=== PATIENT | female | born 1990 | race Caucasian/White ===

== ENCOUNTER 2019-04-13 06:40 | Inpatient (IN) | payer MEDICAID, OTHER ==
[2019-04-13] VITALS (11 sets, daily range): BP systolic 95–129; BP diastolic 53–74
[~2019-04-13] VITALS: Ht 160 cm; Wt 55.6 kg
[~2019-04-13 06:40] MED LIST: CLEO300C2 PO; KETO10TAB PO
[2019-04-13] MEDS ORDERED: NS 1,000 ML IV ONE (07:00)
[2019-04-13] MEDS ORDERED: DESV50TA3 (07:30)
[2019-04-13] MEDS ORDERED: DIAZ5TAB PO (07:30)
[2019-04-13] MEDS ORDERED: AMPH1TAB2 (07:30)
[2019-04-13 07:34] LABS: BASO % 0.7 % (0.0-1.0); EOS # 0.1 10^3/uL (0.0-0.50); EOS % 1.8 % (0.0-3.0); HEMOGLOBIN 11.8 g/dl (12.0-15.5); LYMPH # 2.1 10^3/uL (1.5-6.5); LYMPH % 33.5 % (24.0-44.0); MEAN CORPUSCULAR HEMOGLOBIN 29.1 pg (27.0-33.0); MEAN CORPUSCULAR HGB CONC 31.9 g/dl (32.0-36.5); MEAN CORPUSCULAR VOLUME 91.1 fl (80.0-96.0); MONO # 0.5 10^3/uL (0.0-0.8); NEUTROPHILS # 3.4 10^3/uL (1.8-7.7); NEUTROPHILS % 55.7 % (36.0-66.0); PLATELET COUNT, AUTOMATED 339 10^3/uL (150-450); RED BLOOD COUNT 4.06 10^6/uL (4.00-5.40); WHITE BLOOD COUNT 6.2 10^3/uL (4.0-10.0)
[2019-04-13] MEDS ORDERED: IBUP200T45 PO (07:56)
[2019-04-13] MEDS ORDERED: ADDE20TA PO ×2 (07:56)
[2019-04-13 08:15] LABS: ACETAMINOPHEN LEVEL < 2.0 UG/ML (10.0-30.0); ALBUMIN 3.4 GM/DL (3.2-5.2); ALT/SGPT 42 U/L (12-78); BILIRUBIN,DIRECT < 0.1 MG/DL (0.0-0.2); BILIRUBIN,TOTAL 0.3 MG/DL (0.2-1.0); BLOOD UREA NITROGEN 13 MG/DL (7-18); CALCIUM LEVEL 8.7 MG/DL (8.5-10.1); CARBON DIOXIDE LEVEL 29 MEQ/L (21-32); CHLORIDE LEVEL 104 MEQ/L (98-107); CPK CREATINE PHOSPHOKINASE 61 U/L (26-192); ETHYL ALCOHOL (ETHANOL) < 0.003 % (0.000-0.010); GLOMERULAR FILTRATION RATE > 60.0 (>60); GLUCOSE, FASTING 95 MG/DL (70-100); LIPASE 47 U/L (73-393); POTASSIUM SERUM 3.9 MEQ/L (3.5-5.1); SALICYLATE LEVEL 2.1 MG/DL (5.0-30.0); SODIUM LEVEL 138 MEQ/L (136-145); TOTAL PROTEIN 7.2 GM/DL (6.4-8.2)
[2019-04-13 08:18] LABS: HCG, SERUM QUALITATIVE NEGATIVE (NEGATIVE)
[2019-04-13 08:54] LABS: AMPHETAMINES LEVEL URINE POSITIVE (NEGATIVE); BARBITURATES URINE NEGATIVE (NEGATIVE); BENZODIAZEPINES URINE NEGATIVE (NEGATIVE); CANNABINOIDS URINE NEGATIVE (NEGATIVE); COCAINE METABOLITE URINE NEGATIVE (NEGATIVE); METHADONE URINE NEGATIVE (NEGATIVE); OPIATES URINE POSITIVE (NEGATIVE); PHENCYCLIDINE URINE NEGATIVE (NEGATIVE)
[2019-04-13] MEDS ORDERED: CHARCOAL ACTIVATED LIQUID 25 GM/120 ML BTL PO ONE ×2 (09:30→13:15)
--- NOTE | 2019-04-13 09:33 | REP ---
KUB: HISTORY: Assess for swallowed heroin. FINDINGS: KUB shows the intestinal gas pattern to be nonspecific. The organ silhouettes insofar as delineated are unremarkable. There is no evidence of free intraperitoneal air. IMPRESSION: Nonspecific. There is no evidence of an intraintestinal foreign body. Electronically Signed by Cristhian Gallo DO 04/13/2019 10:32 A
--- NOTE | 2019-04-13 09:43 | REP ---
HISTORY: Overdose. Assess for pulmonary edema. FINDINGS: The superior mediastinal structures are midline. The cardiac silhouette is unremarkable in size, shape and position. The diaphragmatic surfaces of the lungs are regular and the costophrenic angles are clear. The pulmonary donohue are clear. The imaged osseous structures are intact. IMPRESSION: There is no acute cardiopulmonary disease. Electronically Signed by Cristhian Gallo DO 04/13/2019 10:33 A
[2019-04-13] MEDS ORDERED: GOLYTELY SOLN 4000 ML BTL PO ONE ×2 (09:45→19:30)
[2019-04-13] MEDS: METOCLOPRAMIDE INJ 10MG/2ML VIAL (J2765) IV SCH ×3 (09:53→21:55)
--- NOTE | 2019-04-13 10:36 | HPEPDOC ---
General Date of Admission April 13, 2019 at 09:05 Chief Complaint The patient is a 28-year-old female admitted with a reason for visit of Heroin Overdose. Source: Patient Exam Limitations: Clinical conditions, Other (pt emotional instablity) History of Present Illness Pt is a 28 yo female with no PMH of daily IV heroin use presented to [facility] ER due to right upper quadrant and right lower quadrant abdominal pain that started at 5AM after swallowing heroine packs at 4AM. Pt said pain is more in RLQ. She reported that she uses Adderall in addition to daily IV heroin use injected in extremities and neck. She reported some lightheadedness and abd pain but denies any other symptoms including fever, chills, nausea, vomiting. Last BM was about 1-2 weeks ago. Left sided neck abscess was reported to start about 2 weeks ago that is reported to be improving; pt took doxycyline from friend for 10 days. Reported 2 left side neck abscess that used to be larger and more painful and erythematous. Pt stated that she has been able to move her neck better as the abscess improved. was Pt was sad and started tearing as she was unable to find her locke in her clothes, and asked to be left alone thus limited info was able to be obtained Home Medications Scheduled Dextroamphetamine/Amphetamine (Adderall 20 mg Tablet) 20 Mg Tablet, 30 MG PO QAM, (Reported) Dextroamphetamine/Amphetamine (Adderall 20 mg Tablet) 20 Mg Tablet, 20 MG PO DAILY, (Reported) TAKES AT NOON Scheduled PRN Diazepam (Diazepam) 5 Mg Tablet, 7.5 MG PO Q12H PRN for ANXIETY, (Reported) Ibuprofen (Ibu-200) 200 Mg Tablet, 200 MG PO Q6H PRN for PAIN, (Reported) Allergies Coded Allergies: Sulfa (Sulfonamide Antibiotics) (Verified Allergy, Intermediate, RASH, 04/13/19) amoxicillin (Verified Allergy, Intermediate, RASH, 04/13/19) Past Medical History Medical History IV heroin use Adderall use Pt denies any other medical history Surgical History Denies Social History * Smoker: Denies A-FIB/CHADSVASC A-FIB History Current/History of A-Fib/PAF?: No Review of Systems Constitutional: Reports: Other (limited ROS was able to be obtained d/t pt's emotional instability. Pos for ightheadedness); Denies: Chills, Fever Gastrointestinal: Reports: Abdominal Pain, Constipation; Denies: Nausea, Vomiting Physical Examination General Exam: Positive: Alert, Cooperative, Mild Distress Eye Exam: Positive: Conjunctiva & lids normal ENT Exam: Positive: Atraumatic, Mucous membr. moist/pink, Other ENT Neck Exam: Positive: Supple (2 small <1cm nodules/pustules noted on left sided lateral cervical region) Chest Exam: Positive: Clear to auscultation, Normal air movement; Negative: Rales, Rhonchi, Wheezing Heart Exam: Positive: Rate Normal, Regular Rhythm, Normal S1, Normal S2 Abdomen Exam: Positive: BS Hypoactive, Soft, Tenderness (in RLQ) Extremity Exam: Positive: Normal pulses, Other (Multiple needle tracks noted in b/l UE) Skin Exam: Positive: Nl turgor and temperature, Other skin issue (questionable abscess in left cervical region) Neuro Exam: Positive: Normal Speech Psych Exam: Positive: Mental status NL, Memory Intact, Oriented x 3; Negative: Mood NL Vital Signs Vital Signs Date Time Temp Pulse Resp B/P (MAP) Pulse Ox O2 Delivery O2 Flow Rate FiO2 04/13/19 10:20 108/64 (79) 04/13/19 10:15 90 18 96 Room Air 04/13/19 07:33 97.7 Laboratory Data Labs 24H Laboratory Tests 2 04/13/19 07:16: Immature Granulocyte % (Auto) 0.3, White Blood Count 6.2, Red Blood Count 4.06, Hemoglobin 11.8L, Hematocrit 37.0, Mean Corpuscular Volume 91.1, Mean Corpuscular Hemoglobin 29.1, Mean Corpuscular Hemoglobin Concent 31.9L, Red Cell Distribution Width 13.1, Platelet Count 339, Neutrophils (%) (Auto) 55.7, Lymphocytes (%) (Auto) 33.5, Monocytes (%) (Auto) 8.0H, Eosinophils (%) (Auto) 1.8, Basophils (%) (Auto) 0.7, Neutrophils # (Auto) 3.4, Lymphocytes # (Auto) 2.1, Monocytes # (Auto) 0.5, Eosinophils # (Auto) 0.1, Basophils # (Auto) 0.0, Nucleated Red Blood Cells % (auto) 0.0, Anion Gap 5L, Glomerular Filtration Rate > 60.0, Calcium Level 8.7, Aspartate Amino Transf (AST/SGOT) 31, Alanine Aminotransferase (ALT/SGPT) 42, Alkaline Phosphatase 121H, Total Bilirubin 0.3, Direct Bilirubin < 0.1, Total Creatine Kinase 61, Total Protein 7.2, Albumin 3.4, Albumin/Globulin Ratio 0.89L, Lipase 47L, Thyroid Stimulating Hormone (TSH) 0.850, Human Chorionic Gonadotropin, Qual NEGATIVE, Salicylates Level 2.1L, Acetaminophen Level < 2.0L, Ethyl Alcohol Level < 0.003 04/13/19 08:16: Urine Amphetamines Screen POSITIVEH, Urine Benzodiazepines Screen NEGATIVE, Urine Opiates Screen POSITIVEH, Urine Methadone Screen NEGATIVE, Urine Barbiturates Screen NEGATIVE, Urine Phencyclidine Screen NEGATIVE, Urine Cocaine Metabolite Screen NEGATIVE, Urine Cannabinoids Screen NEGATIVE CBC/BMP Laboratory Tests 04/13/19 07:16 Red Blood Count 4.06, Mean Corpuscular Volume 91.1, Mean Corpuscular Hemoglobin 29.1, Mean Corpuscular Hemoglobin Concent 31.9 L, Red Cell Distribution Width 13.1, Neutrophils (%) (Auto) 55.7, Lymphocytes (%) (Auto) 33.5, Monocytes (%) (Auto) 8.0 H, Eosinophils (%) (Auto) 1.8, Basophils (%) (Auto) 0.7, Neutrophils # (Auto) 3.4, Lymphocytes # (Auto) 2.1, Monocytes # (Auto) 0.5, Eosinophils # (Auto) 0.1, Basophils # (Auto) 0.0 Problems (1) Encounter for observation for suspected toxic effect from ingested substance Problem Text: Pt ingested 1 pk of heroin at 4AM and started having right sided abdominal pain 1 hr later. Pt vital signs stable and reported no symptoms other than lightheadedness and abdominal pain; no obvious symptoms of heroin overdose at this time as the heroin she swallowed was in packs noted to be for drug trafficking. Golytely, activated charcoal, and IV reglan ordered. Cont to monitor the pt closely and cont vital signs. Narcan if indicated (2) Subcutaneous nodule of neck Problem Text: Pt reported abscess in neck for about 2 weeks that she reported to be improving in size and pain. Took doxycycline that she got from friend for 10 days. Daily IV heroin use reported injection on neck as well. CT neck w/ contrast ordered showed no abnormality; consider repeat neck US. Pt was started on IV Vancomycin but d/c as no neg CT neck report without leukocytosis or fever. Blood cx X2 pending; echo if pos blood cx. (3) Heroin abuse Problem Text: Pt is daily heroin IV user with multiple needle trackings and questionable neck abscess. Blood cx and MRSA screen ordered. Pt's mood appeared unstable as she was tearing and asked if she could be left alone thus was unable to discuss it further. When pt is medically stable, we will consult psych team (4) Adderall use disorder, moderate Problem Text: Pt reported adderall use with no PMH reported that has medical indication for adderall use. Pt vitals currently stable. Unable to discuss with pt further regarding her adderall use. Will consult psych team when medically stable. Cont vital signs as scheduled (5) Anxiety Problem Text: Pt reported no medical diagnosis but home med include diazepam PRN. Utox neg for benzo. Vital signs stable, cont to monitor vital signs and consult psych team when medically stable Plan / VTE VTE Prophylaxis Ordered?: Yes (heparin [place]) DARIO DEVINE DO April 13, 2019 10:36
[2019-04-13] MEDS ORDERED: VANCOMYCIN HCL 1,000 MG, VIAL MATE ADAPTER 1 EACH in D5W 250 ML IV ONE (13:00)
--- NOTE | 2019-04-13 13:15 | IPNPDOC ---
Date Seen The patient was seen on 04/13/19. Progress Note ATTENDING NOTE: ADDENDUM TO PROGRESS NOTE BY RESIDENT PHYSICIAN, DR. DEVINE: I have indepedently interviewed and examined the patient at the bedside with my Resident physician, Dr. Devine. I agree with the treatment plan documented in Dr. Devine's Progress Note. All of the patient's concerns and questions have been satisfactorily answered. Pt has been encouraged to call me should questions arise. A-FIB/CHADSVASC A-FIB History Current/History of A-Fib/PAF?: No Current Oral Anticoagulant The: No VS, I&O, 24H, Fishbone Vital Signs/I&O Vital Signs Date Time Temp Pulse Resp B/P (MAP) Pulse Ox O2 Delivery O2 Flow Rate FiO2 04/13/19 11:50 82 18 97 Room Air 04/13/19 11:40 110/67 (81) 04/13/19 07:33 97.7 Laboratory Data 24H LABS Laboratory Tests 2 04/13/19 07:16: Immature Granulocyte % (Auto) 0.3, White Blood Count 6.2, Red Blood Count 4.06, Hemoglobin 11.8L, Hematocrit 37.0, Mean Corpuscular Volume 91.1, Mean Corpuscular Hemoglobin 29.1, Mean Corpuscular Hemoglobin Concent 31.9L, Red Cell Distribution Width 13.1, Platelet Count 339, Neutrophils (%) (Auto) 55.7, Lymphocytes (%) (Auto) 33.5, Monocytes (%) (Auto) 8.0H, Eosinophils (%) (Auto) 1.8, Basophils (%) (Auto) 0.7, Neutrophils # (Auto) 3.4, Lymphocytes # (Auto) 2.1, Monocytes # (Auto) 0.5, Eosinophils # (Auto) 0.1, Basophils # (Auto) 0.0, Nucleated Red Blood Cells % (auto) 0.0, Anion Gap 5L, Glomerular Filtration Rate > 60.0, Calcium Level 8.7, Aspartate Amino Transf (AST/SGOT) 31, Alanine Aminotransferase (ALT/SGPT) 42, Alkaline Phosphatase 121H, Total Bilirubin 0.3, Direct Bilirubin < 0.1, Total Creatine Kinase 61, Total Protein 7.2, Albumin 3.4, Albumin/Globulin Ratio 0.89L, Lipase 47L, Thyroid Stimulating Hormone (TSH) 0.850, Human Chorionic Gonadotropin, Qual NEGATIVE, Salicylates Level 2.1L, Acetaminophen Level < 2.0L, Ethyl Alcohol Level < 0.003 04/13/19 08:16: Urine Amphetamines Screen POSITIVEH, Urine Benzodiazepines Screen NEGATIVE, Urine Opiates Screen POSITIVEH, Urine Methadone Screen NEGATIVE, Urine Barbiturates Screen NEGATIVE, Urine Phencyclidine Screen NEGATIVE, Urine Cocaine Metabolite Screen NEGATIVE, Urine Cannabinoids Screen NEGATIVE CBC/BMP Laboratory Tests 04/13/19 07:16 Red Blood Count 4.06, Mean Corpuscular Volume 91.1, Mean Corpuscular Hemoglobin 29.1, Mean Corpuscular Hemoglobin Concent 31.9 L, Red Cell Distribution Width 13.1, Neutrophils (%) (Auto) 55.7, Lymphocytes (%) (Auto) 33.5, Monocytes (%) (Auto) 8.0 H, Eosinophils (%) (Auto) 1.8, Basophils (%) (Auto) 0.7, Neutrophils # (Auto) 3.4, Lymphocytes # (Auto) 2.1, Monocytes # (Auto) 0.5, Eosinophils # (Auto) 0.1, Basophils # (Auto) 0.0 LINETTE FAY MD April 13, 2019 13:15
[2019-04-13] MEDS ORDERED: ISOVUE-370 76% 100ML VIAL (Q9967) As Ordered ONE (13:19)
--- NOTE | 2019-04-13 13:43 | REP ---
HISTORY: Possible left neck abscess. COMPARISON: None. CONTRAST: 100 mL Isovue-370. SUPRAHYOID NECK: The parapharyngeal, retropharyngeal, pharyngomucosal, carotid, box toe buffer, and parotid spaces are within normal limits. There is spray artifact arising from dental amalgam obscuring multiple images of the suprahyoid neck. The prevertebral and paraspinal components of the perivertebral space are within normal limits. INFRAHYOID NECK: The aforementioned neck spaces along with the posterior cervical space are within normal limits. IMPRESSION: CT findings are within normal limits. Electronically Signed by Cristhian Gallo DO 04/13/2019 03:38 P
--- NOTE | 2019-04-13 14:17 | PHACANCOPD ---
PHARMACY VANCOMYCIN DOSING Pt Demographics Demographics Patient Age:28 , Weight:55.600 , Gender: female Adjusted Body Weight Date: 04/13/19, Adjusted Body Weight: Kg Events Past 24 Hours Events Past 24 Hours: NO: Dialysis, Diuretic Therapy, Change in CrCl, Fever, Elevation in WBC, Pending Diagnostics, Pending Procedures, Other Vancomycin Vancomycin indication: ? left neck abscess Vancomycin Target Ranges: 10-20 mcg/ml Vancomycin Load Y/N: Yes Load Dose Date Time Vancomycin Load Dose: 1000mg Date: 04/13 Time: ~14:00 Vancomycin Dose Date: 04/13/19. Current Vancomycin Dose: [1g IV q12h @20] Intermittent Dosing?: No Labs Labs Item Value Date Time White Blood Count 6.2 10^3/uL 04/13/19 0716 Creatinine 0.70 MG/DL 04/13/19 0716 Creatinine Clearance Date:04/13/19. Creatinine Clearance: [>100 ml/min]. Assessment and Plan Maintaining Current Dose?: Yes Reason for dose change: No Dose Change Pharmacist Note Pharmacist Note Date: 04/13/19. Pharmacist note: pt has been started on vancomycin for a questionable neck abscess secondary to IVDU. Pt noted that neck swelling improved with po doxycycline outpatient. I have started her on vancomycin 1g this afternoon, followed by 1g IV q12h to begin ~6 hours later. I will continue to monitor over the weekend and make adjustments as necessary. Eric Porras Pharm.D. April 13, 2019 14:17
[2019-04-13] MEDS: HEPARIN SOD (PORCINE) 5000 UNITS/ML VIAL SC SCH ×2 (14:25→21:55)
--- NOTE | 2019-04-13 17:54 | ECGEPIP ---
Stationary ECG Study [facility] - ED Test Date: 2019-04-13 Pat Name: LESLY RAND Department: Room: - Gender: F [employer]ave [employer]sembler: YANA : 1990 Requested By: NEHEMIAH Aguilar Order Number: [id number] Reading MD: Ariane Akers Measurements Intervals [place] Rate: 102 P: 62 MD: 157 QRS: 30 QRSD: 84 T: 29 QT: 335 QTc: 437 Interpretive Statements SINUS TACHYCARDIA ABNORMAL RHYTHM ECG NO PRIOR FOR COMPARISON Electronically Signed On 04-13-2019 17:53:44 EDT by Ariane Akers
[2019-04-13] MEDS ORDERED: MAGNESIUM CITRATE 300 ML BTL PO ONE (19:30)
[2019-04-13] MEDS ORDERED: CHARCOAL ACTIVATED LIQUID 25 GM/120 ML BTL PO SCH (20:00)
[2019-04-13] MEDS ORDERED: VANCOMYCIN HCL 750 MG, VIAL MATE ADAPTER 1 EACH in D5W 250 ML IV SCH (20:00)
[2019-04-13] MEDS ORDERED: VANCOMYCIN HCL 1,000 MG, VIAL MATE ADAPTER 1 EACH in D5W 250 ML IV SCH (20:00)
[2019-04-13] MEDS: LORazepam 2 MG TAB PO PRN (21:55)
[2019-04-14] VITALS (13 sets, daily range): BP systolic 96–137; BP diastolic 53–66
[2019-04-14] MEDS: CHARCOAL ACTIVATED LIQUID 25 GM/120 ML BTL PO SCH ×2 (03:40→08:27)
[2019-04-14] MEDS: METOCLOPRAMIDE INJ 10MG/2ML VIAL (J2765) IV SCH ×2 (03:40→08:32)
[2019-04-14] MEDS: LORazepam 2 MG TAB PO PRN (03:42)
[2019-04-14] MEDS ORDERED: LORazepam 2 MG/ML VIAL (J2060) IV PRN (04:00)
[2019-04-14] MEDS ORDERED: LORazepam 2 MG TAB XX PRN (04:00)
[2019-04-14] MEDS ORDERED: CHARCOAL ACTIVATED LIQUID 25 GM/120 ML BTL PO ONE (04:00)
[2019-04-14 05:01] LABS: HEMOGLOBIN 11.4 g/dl (12.0-15.5); MEAN CORPUSCULAR HEMOGLOBIN 29.1 pg (27.0-33.0); MEAN CORPUSCULAR HGB CONC 31.7 g/dl (32.0-36.5); MEAN CORPUSCULAR VOLUME 91.8 fl (80.0-96.0); PLATELET COUNT, AUTOMATED 344 10^3/uL (150-450); RED BLOOD COUNT 3.92 10^6/uL (4.00-5.40); WHITE BLOOD COUNT 7.7 10^3/uL (4.0-10.0)
[2019-04-14 05:24] LABS: BLOOD UREA NITROGEN 7 MG/DL (7-18); CALCIUM LEVEL 8.5 MG/DL (8.5-10.1); CARBON DIOXIDE LEVEL 28 MEQ/L (21-32); CHLORIDE LEVEL 106 MEQ/L (98-107); CREATININE FOR GFR 0.88 MG/DL (0.55-1.30); GLOMERULAR FILTRATION RATE > 60.0 (>60); GLUCOSE, FASTING 140 MG/DL (70-100); POTASSIUM SERUM 3.2 MEQ/L (3.5-5.1); SODIUM LEVEL 141 MEQ/L (136-145)
[2019-04-14] MEDS: HEPARIN SOD (PORCINE) 5000 UNITS/ML VIAL SC SCH (05:34)
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
[2019-04-14] MEDS ORDERED: POTASSIUM CHLORIDE 10 MEQ SR TABLET PO ONE (08:30)
[2019-04-14] MEDS ORDERED: LACTULOSE 20 GM/30 ML SYRUP UD PO ONE (08:30)
[2019-04-14] MEDS ORDERED: NS 1,000 ML IV SCH (08:30)
[2019-04-14] MEDS: THIAMINE 100 MG TAB PO SCH ×2 (08:32→20:22)
[2019-04-14] MEDS: MULTIVITAMINS/MINERALS THERAP 1 TAB PO SCH (08:32)
[2019-04-14] MEDS: FOLIC ACID 1 MG TAB PO SCH (08:32)
[2019-04-14] MEDS ORDERED: MAGNESIUM CITRATE 300 ML BTL PO ONE (09:00)
[2019-04-14] MEDS ORDERED: METHADONE 5 MG TAB (S0109) PO SCH ×2 (09:00→12:45)
[2019-04-14] MEDS ORDERED: MORPHINE 4 MG/ML 1ML VIAL/SYRINGE (J2270) IV PRN (09:00)
[2019-04-14] MEDS ORDERED: METHADONE 10 MG TAB (S0109) PO ONE (17:00)
[2019-04-14] MEDS: NS 1,000 ML IV SCH ×2 (17:04→17:58)
[2019-04-14] MEDS ORDERED: ALPRAZolam 0.5 MG TAB PO PRN (17:30)
[2019-04-14] MEDS ORDERED: ALPRAZolam 0.5 MG TAB PO ONE (17:45)
[2019-04-14] MEDS: METHADONE 10 MG TAB (S0109) PO SCH (20:22)
[2019-04-15 06:00] VITALS: BP 138/84
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
[2019-04-15] MEDS ORDERED: METH10TA2 PO (07:00)
[2019-04-15] MEDS ORDERED: CLIN150C14 PO (07:00)
[2019-04-15] MEDS: MULTIVITAMINS/MINERALS THERAP 1 TAB PO SCH (08:55)
[2019-04-15] MEDS: FOLIC ACID 1 MG TAB PO SCH (08:55)
[2019-04-15] MEDS: METHADONE 10 MG TAB (S0109) PO SCH (08:55)
[2019-04-15] MEDS: THIAMINE 100 MG TAB PO SCH (08:55)
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
[2019-04-15 14:00] VITALS: BP 93/59
[2019-04-15] MEDS ORDERED: MAGNESIUM OXIDE 400 MG TAB (MAG-OX) PO ONE (14:30)
[2019-04-15] MEDS ORDERED: POTASSIUM CHLORIDE 10 MEQ SR TABLET PO ONE (15:00)
[2019-04-15 15:01] LABS: MAGNESIUM LEVEL 2.3 MG/DL (1.8-2.4); POTASSIUM SERUM 3.6 MEQ/L (3.5-5.1)
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
== END 2019-04-15 15:41 | DRG 816 ==
LOC: M ED 06:40 → M ED INP 09:05 → M ICU 12:05 → M MSPAV 04-14 14:01
PROVIDERS: ADMIT General Practice; ATTEND General Practice
DX: T40.1X2A Poisoning by heroin, intentional self-harm, initial encounter (principal); L03.221 Cellulitis of neck; F11.23 Opioid dependence with withdrawal; F41.9 Anxiety disorder, unspecified; Z79.899 Other long term (current) drug therapy; Z88.2 Allergy status to sulfonamides; Z88.0 Allergy status to penicillin; F15.90 Other stimulant use, unspecified, uncomplicated; F11.90 Opioid use, unspecified, uncomplicated; F32.9 Major depressive disorder, single episode, unspecified

== ENCOUNTER 2019-04-15 13:49 | Inpatient (IN) | payer OTHER ==
[~2019-04-15] VITALS: Ht 160 cm; Wt 54.5 kg
[~2019-04-15 13:49] MED LIST changes: +ADDE20TA PO; +AMPH1TAB2; +CLIN150C14 PO; +DESV50TA3; +DIAZ5TAB PO; +IBUP200T45 PO; +METH10TA2 PO
[2019-04-15] MEDS ORDERED: MOM 30ML SUSPENSION UDC PO PRN (14:00)
[2019-04-15] MEDS ORDERED: IBUPROFEN 400 MG TAB PO PRN (14:00)
[2019-04-15] MEDS ORDERED: MAALOX 30 ML SUSP *UDC PO PRN (14:00)
[2019-04-15] MEDS ORDERED: ALPRAZolam 0.5 MG TAB PO PRN ×2 (14:00→17:15)
[2019-04-15] MEDS ORDERED: METHADONE 10 MG TAB (S0109) PO SCH (16:00)
[2019-04-15 16:35] VITALS: BP 103/65
[2019-04-15] MEDS ORDERED: CLINDAMYCIN 150 MG CAP PO SCH (17:00)
[2019-04-15] MEDS: THIAMINE 100 MG TAB PO SCH (17:06)
[2019-04-15] MEDS ORDERED: METHADONE 5 MG TAB (S0109) PO SCH (21:00)
[2019-04-15] MEDS: traZODone 50 MG TAB PO PRN (23:55)
[2019-04-16 06:39] VITALS: BP 92/55
[2019-04-16] MEDS: MULTIVITAMINS/MINERALS THERAP 1 TAB PO SCH (09:00)
[2019-04-16] MEDS: FOLIC ACID 1 MG TAB PO SCH (09:00)
[2019-04-16] MEDS ORDERED: METHADONE 10 MG TAB (S0109) PO ONE (09:00)
[2019-04-16] MEDS ORDERED: METHADONE 5 MG TAB (S0109) PO ONE (09:00)
[2019-04-16] MEDS: THIAMINE 100 MG TAB PO SCH ×2 (09:00→20:47)
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
[2019-04-16] MEDS: CLINDAMYCIN 150 MG CAP PO SCH ×3 (14:06→20:47)
[2019-04-16] MEDS: METHADONE 10 MG TAB (S0109) PO SCH ×2 (15:07→20:48)
[2019-04-16 18:00] VITALS: BP 101/56
--- NOTE | 2019-04-16 21:59 | HPE ---
DATE OF ADMISSION: 04/15/2019 Please refer to the psychiatric history and evaluation for further details on this admission. This examination and history is intended for medical issues which may need treatment, followup, or consult on this 28-year-old female who was transferred down from the medical floor after having been treated for a stated overdose of five bags of heroin. She received charcoal. She has had x-rays and has been cleared. ALLERGIES: SULFA ANTIBIOTICS and AMOXICILLIN. SOCIAL HISTORY: She is single. She does not drink alcohol. She occasionally smokes cigarettes. Recreational drug use: Heroin, amphetamines. PAST MEDICAL HISTORY: Substance abuse, anxiety, depression. PAST SURGICAL HISTORY: Umbilical hernia repair. FAMILY HISTORY: Mother is alive and well. Father is alive and well. HOME MEDICATIONS: - she has been on vancomycin for an abscess on her neck (cut off) she has been on clindamycin upon arrival down here - methadone 10 mg by mouth three times a day - at home Adderall 20 mg by mouth daily, notes say Adderall 30 mg by mouth daily, will need to check with pharmacy REVIEW OF SYSTEMS: No complaint of headaches. No blurred or double vision. No fever or chills. No tinnitus. No hoarseness. No difficulty swallowing. Slight lightheadedness. No vertigo. BREASTS: No masses. CARDIOVASCULAR: No complaints of chest pain, shortness of breath, palpitations, or edema. RESPIRATORY: No cough. No sputum production. No hemoptysis. No orthopnea. No wheeze. GASTROINTESTINAL (GI): No nausea, vomiting, or diarrhea. No hematochezia. No melena. No complaints of abdominal pain. GENITOURINARY (): No hematuria, dysuria, or frequency. MUSCULOSKELETAL: No joint redness or swelling. ENDOCRINE: No polyuria, polydipsia, or polyphagia. HEMATOLOGICAL: No history of anemia. NEUROLOGICAL: No history of seizures. PSYCHOLOGICAL: Complaining of severe anxiety. PHYSICAL EXAMINATION: 28-year-old cooperative female in no acute distress. Height 63 inches, weight 54 kg, body mass index (BMI) 21.3. Blood pressure 100/60, pulse 76, respirations 18, temperature 99. Patient is alert and oriented times three. Pupils equal and reactive to light. Extraocular movements are intact. Cornea and sclerae clear. Conjunctivae is normal. No facial asymmetry. Pharynx, tongue, gums pink and moist. Tongue is midline. Neck is supple. Left side of neck has three slightly firm nodules or slightly hardened lymph glands or cysts. Right side of neck healing slightly reddened from IV access. No thyromegaly. No goiter. Carotids 2+ without bruit. Chest clear to auscultation without wheeze or retraction. Heart is regular. Abdomen is benign. Bowel sounds are positive. Genitourinary/Rectal: Not done. Extremities show no cyanosis, clubbing, or edema. Peripheral pulses equal and palpable bilaterally. IMPRESSION/PLAN: Psychiatric plan per psychiatry. Treat and monitor for withdrawal. Polysubstance abuse. Depression/anxiety. EKG on file shows sinus tachycardia 102. Question hardened lymph nodes, cysts, left side of neck. CT scan was unremarkable. Will get an ultrasound. Healing abscess right side of neck. Continue clindamycin.
[2019-04-16] MEDS: traZODone 50 MG TAB PO PRN (22:13)
[2019-04-17 06:33] VITALS: BP_SYST 83; BP_SYST 92; BP_DIAS 51; BP_DIAS 52
[2019-04-17] MEDS: MULTIVITAMINS/MINERALS THERAP 1 TAB PO SCH (08:28)
[2019-04-17] MEDS: FOLIC ACID 1 MG TAB PO SCH (08:28)
[2019-04-17] MEDS: THIAMINE 100 MG TAB PO SCH (08:28)
[2019-04-17] MEDS: CLINDAMYCIN 150 MG CAP PO SCH ×2 (08:28→12:18)
[2019-04-17] MEDS ORDERED: METHADONE 5 MG TAB (S0109) PO SCH ×2 (09:00)
[2019-04-17] MEDS ORDERED: CLIN150C14 PO (11:00)
[2019-04-17 13:25] LABS: HEPATITIS A ANTIBODY IGM NEGATIVE (NEGATIVE); HEPATITIS B CORE ANTIBODY IGM NEGATIVE (NEGATIVE); HEPATITIS B SURFACE ANTIGEN NEGATIVE (NEGATIVE)
[2019-04-17 13:35] LABS: HEPATITIS C VIRUS ABY INDEX > 11.0 INDEX (<0.8)
--- NOTE | 2019-04-17 15:13 | MHDSPDOC ---
[facility] Discharge Summary Discharge Summary DATE OF ADMISSION: April 15, 2019 at 15:45 DATE OF DISCHARGE: April 17, 2019 at 12:50 DISCHARGE DIAGNOSES: 1. Adjustment disorder with depressed mood. 2.. Opiate dependence. REASON FOR ADMISSION: On medical floor. Patient made suicidal statements following arrest on numerous charges. Patient had stated she also swallowed bag of heroin CONSULTANTS INVOLVED: Seen on medical floor and seen by Dr. Zaidi TREATMENT AND PROGRESS ON THE UNIT :. Patient was observed and methadone dosage prescribed by Dr. Zaidi was decreased. HOSPITAL COURSE: Patient slept in bed mostly and evaluation of neck vessels was completed DISCHARGE ASSESSMENT:. Opiate dependence and criminal behavior MENTAL STATUS EXAMINATION ON DISCHARGE: Patient is a 28-year old female, who is being arrested for numerous criminal charges including opiate dependence. Speech is, intact. Language skills are, intact. Thought processes including:. No abnormal thought process. Thought content: Intact. Abstract reasoning, and computation:. Able to abstract. Description of associations:. No loose associations. Description of abnormal or psychotic thoughts:. No psychotic thought. Judgment: Poor. Insight:, Poor. Orientation to intact in 3 spheres. Recent and remote memory: Intact. Attention span and concentration:. Poor. Language: As above. Fund of knowledge:, Intact. Mood:, Sad. Affect:, Congruent. MEDICATIONS ON DISCHARGE: -. No medications prescribed, except clindamycin for infection PLAN/FOLLOWUP ARRANGEMENTS: Patient is presently going to be arrested and follow-up care will be arranged. The amount of time spent in the coordination of care for this patient was approximately 85 minutes. Vital Signs/I&Os Vital Signs Date Time Temp Pulse Resp B/P (MAP) Pulse Ox O2 Delivery O2 Flow Rate FiO2 04/17/19 06:33 97.6 47 14 92/52 (65) 04/16/19 18:00 98 Laboratory Data Labs 24H Laboratory Tests 2 04/17/19 11:39: Hepatitis A IgM Antibody NEGATIVE, Hepatitis B Surface Antigen NEGATIVE, Hepatitis B Core IgM Antibody NEGATIVE, Hepatitis C Antibody Index > 11.0H 04/17/19 11:40: Medications Scheduled Clindamycin Hcl (Clindamycin HCl) 150 Mg Capsule, 150 MG PO QID for iNFECTION for 7 Days, #28 Allergies Coded Allergies: Sulfa (Sulfonamide Antibiotics) (Verified Allergy, Intermediate, RASH, 04/13/19) amoxicillin (Verified Allergy, Intermediate, RASH, 04/13/19) SEDRICK DONNELLY MD April 17, 2019 15:13
--- NOTE | 2019-04-17 16:38 | REP ---
Clinical: Palpable mass. Technique: Real time hall scale and color evaluation using linear high frequency transducer with standoff pad. Findings: Directed ultrasound examination of the side of the neck at the site of palpable masses demonstrates complex hypoechoic nodules measuring 12.6 x 6.2 x 10.2 mm and 15.7 x 7.7 x 10.4 mm as well as normal lymph node measuring 8.5 x 4.1 x 6.3 mm. Impression: Palpable mass corresponds to nonspecific hypoechoic nodules possible granulomas. Electronically Signed by Roel Manzanares MD 04/17/2019 04:29 P
[2019-04-18] MEDS ORDERED: METHADONE 5 MG TAB (S0109) PO ONE (09:00)
== END 2019-04-17 12:50 | DRG 754 ==
LOC: M PSY 15:45
PROVIDERS: ADMIT Psychiatry & Neurology Psychiatry; ATTEND Psychiatry & Neurology Child & Adolescent Psychiatry
DX: F43.21 Adjustment disorder with depressed mood (principal); R45.851 Suicidal ideations; F11.90 Opioid use, unspecified, uncomplicated; Z88.2 Allergy status to sulfonamides; Z88.0 Allergy status to penicillin

== ENCOUNTER → 2019-08-16 | Outpatient (CLI) | payer SELFPAY ==
[2019-08-16 13:32] LABS: BASO % 0.3 % (0.0-1.0); EOS % 0.3 % (0.0-3.0); HEMATOCRIT 40.7 % (36.0-47.0); HEMOGLOBIN 13.6 g/dl (12.0-15.5); LYMPH # 2.9 10^3/uL (1.5-5.0); LYMPH % 40.5 % (24.0-44.0); MEAN CORPUSCULAR HEMOGLOBIN 31.1 pg (27.0-33.0); MEAN CORPUSCULAR HGB CONC 33.4 g/dl (32.0-36.5); MEAN CORPUSCULAR VOLUME 92.9 fl (80.0-96.0); MONO # 0.4 10^3/uL (0.0-0.8); MONO % 5.8 % (0.0-5.0); NEUTROPHILS # 3.9 10^3/uL (1.5-8.5); PLATELET COUNT, AUTOMATED 285 10^3/uL (150-450); RED BLOOD COUNT 4.38 10^6/uL (4.00-5.40); WHITE BLOOD COUNT 7.3 10^3/uL (4.0-10.0)
[2019-08-16 13:57] LABS: ALBUMIN 4.3 GM/DL (3.2-5.2); ALT/SGPT 65 U/L (12-78); BILIRUBIN,TOTAL 0.5 MG/DL (0.2-1.0); BLOOD UREA NITROGEN 14 MG/DL (7-18); CALCIUM LEVEL 9.9 MG/DL (8.5-10.1); CARBON DIOXIDE LEVEL 27 MEQ/L (21-32); CHLORIDE LEVEL 104 MEQ/L (98-107); CREATININE FOR GFR 0.83 MG/DL (0.55-1.30); GLOMERULAR FILTRATION RATE > 60.0 (>60); GLUCOSE, FASTING 116 MG/DL (70-100); SODIUM LEVEL 141 MEQ/L (136-145); TOTAL PROTEIN 7.9 GM/DL (6.4-8.2)
[2019-08-16 14:10] LABS: HEPATITIS B SURFACE ANTIGEN NEGATIVE (NEGATIVE)
[2019-08-16 14:38] LABS: HEPATITIS B CORE ANTIBODY IGM NEGATIVE (NEGATIVE)
[2019-08-16 14:40] LABS: HEPATITIS A ANTIBODY IGM NEGATIVE (NEGATIVE)
[2019-08-16 15:54] LABS: HEPATITIS C VIRUS ABY INDEX > 11.0 INDEX (<0.8)
== END ==
LOC: M LAB 12:51
PROVIDERS: ATTEND Nurse Practitioner Family
DX: F11.20 Opioid dependence, uncomplicated (principal)

== ENCOUNTER → 2020-09-21 | Outpatient (CLI) | payer OTHER ==
[~2020-09-21] MED LIST changes: +LIDO2SOL17 PO; +METH10CO PO; +PATIENT COMMENT
[2020-09-21 13:26] LABS: HEMATOCRIT 42.1 % (36.0-47.0); HEMOGLOBIN 13.6 g/dl (12.0-15.5); MEAN CORPUSCULAR HEMOGLOBIN 28.9 pg (27.0-33.0); MEAN CORPUSCULAR HGB CONC 32.3 g/dl (32.0-36.5); MEAN CORPUSCULAR VOLUME 89.4 fl (80.0-96.0); PLATELET COUNT, AUTOMATED 214 10^3/uL (150-450); RED BLOOD COUNT 4.71 10^6/uL (4.00-5.40); WHITE BLOOD COUNT 9.6 10^3/uL (4.0-10.0)
[2020-09-21 13:59] LABS: ALBUMIN 3.5 GM/DL (3.2-5.2); ALT/SGPT 15 U/L (12-78); BILIRUBIN,TOTAL 0.2 MG/DL (0.2-1.0); BLOOD UREA NITROGEN 9 MG/DL (7-18); CALCIUM LEVEL 9.2 MG/DL (8.5-10.1); CARBON DIOXIDE LEVEL 26 MEQ/L (21-32); CHLORIDE LEVEL 106 MEQ/L (98-107); CREATININE FOR GFR 0.82 MG/DL (0.55-1.30); GLOMERULAR FILTRATION RATE > 60.0 (>60); GLUCOSE, FASTING 82 MG/DL (70-100); SODIUM LEVEL 138 MEQ/L (136-145); TOTAL PROTEIN 7.2 GM/DL (6.4-8.2)
[2020-09-21 14:27] LABS: HEPATITIS B SURFACE ANTIGEN NEGATIVE (NEGATIVE)
[2020-09-21 14:55] LABS: HIV 1&2 SCREEN CENTAUR NEGATIVE (NEGATIVE)
[2020-09-21 15:03] LABS: HEPATITIS C VIRUS ABY INDEX > 11.0 INDEX (<0.8)
[2020-09-21 19:43] LABS: HCG, SERUM QUALITATIVE NEGATIVE (NEGATIVE)
== END ==
LOC: M LAB 12:06
PROVIDERS: ATTEND Family Medicine
DX: F11.21 Opioid dependence, in remission (principal)

== ENCOUNTER → 2020-09-22 | Outpatient (CLI) | payer OTHER ==
--- NOTE | 2020-09-24 22:50 | ECGEPIP ---
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 Electronically Signed on 09-24-2020 22:50:24 EDT by Shay Peters
== END ==
LOC: M EKG 14:01
PROVIDERS: ATTEND Family Medicine
DX: F11.20 Opioid dependence, uncomplicated (principal); R94.31 Abnormal electrocardiogram [ECG] [EKG]

== ENCOUNTER 2020-09-25 12:37 | Emergency (ER) | payer OTHER ==
[~2020-09-25] VITALS: Ht 160 cm; Wt 71.5 kg
[~2020-09-25 12:37] MED LIST changes: -LIDO2SOL17 PO; -METH10CO PO; -PATIENT COMMENT
[2020-09-25 12:38] VITALS: BP 107/67
[2020-09-25] MEDS ORDERED: LIDO2SOL17 PO (13:55)
== END 2020-09-25 14:13 | disposition home or self-care (01) ==
LOC: M ED 12:37
DX: J02.8 Acute pharyngitis due to other specified organisms (principal); B34.9 Viral infection, unspecified; F41.9 Anxiety disorder, unspecified; F32.9 Major depressive disorder, single episode, unspecified; F19.10 Other psychoactive substance abuse, uncomplicated; Z88.2 Allergy status to sulfonamides; Z88.1 Allergy status to other antibiotic agents
CPT/HCPCS: 87880; 99284; U0003

== ENCOUNTER 2020-09-30 17:09 | Observation (INO) | payer OTHER ==
[~2020-09-30] VITALS: Ht 160 cm; Wt 69.5 kg
[~2020-09-30 17:09] MED LIST changes: +LIDO2SOL17 PO
[2020-09-30] MEDS ORDERED: METH10TA2 PO (17:16)
[2020-09-30 17:54] LABS: BASO % 0.5 % (0.0-1.0); EOS % 0.3 % (0.0-3.0); HEMATOCRIT 37.4 % (36.0-47.0); HEMOGLOBIN 12.4 g/dl (12.0-15.5); LYMPH % 26.7 % (24.0-44.0); MEAN CORPUSCULAR HEMOGLOBIN 28.5 pg (27.0-33.0); MEAN CORPUSCULAR HGB CONC 33.2 g/dl (32.0-36.5); MONO # 0.7 10^3/uL (0.0-0.8); MONO % 9.1 % (0.0-5.0); NEUTROPHILS # 4.6 10^3/uL (1.5-8.5); PLATELET COUNT, AUTOMATED 236 10^3/uL (150-450); RED BLOOD COUNT 4.35 10^6/uL (4.00-5.40); WHITE BLOOD COUNT 7.4 10^3/uL (4.0-10.0)
[2020-09-30] MEDS: NS 1,000 ML IV SCH (18:12)
[2020-09-30 18:15] LABS: HCG, SERUM QUALITATIVE NEGATIVE (NEGATIVE)
[2020-09-30 18:24] LABS: ACETAMINOPHEN LEVEL < 2.0 UG/ML (10.0-30.0); ALBUMIN 3.8 GM/DL (3.2-5.2); ALT/SGPT 16 U/L (12-78); BILIRUBIN,DIRECT 0.1 MG/DL (0.0-0.2); BILIRUBIN,TOTAL 0.5 MG/DL (0.2-1.0); BLOOD UREA NITROGEN 13 MG/DL (7-18); CALCIUM LEVEL 9.3 MG/DL (8.5-10.1); CARBON DIOXIDE LEVEL 23 MEQ/L (21-32); CHLORIDE LEVEL 107 MEQ/L (98-107); CPK CREATINE PHOSPHOKINASE 187 U/L (26-192); ETHYL ALCOHOL (ETHANOL) 0.003 % (0.000-0.010); GLOMERULAR FILTRATION RATE > 60.0 (>60); GLUCOSE, FASTING 112 MG/DL (70-100); POTASSIUM SERUM 3.3 MEQ/L (3.5-5.1); SALICYLATE LEVEL < 1.7 MG/DL (5.0-30.0); SODIUM LEVEL 139 MEQ/L (136-145)
[2020-09-30] MEDS ORDERED: POTASSIUM CHLORIDE 10 MEQ SR TABLET PO ONE (18:30)
--- NOTE | 2020-09-30 18:51 | REP ---
INDICATION: swallowed a bag of heroin. COMPARISON: 04/13/2019 FINDINGS: KUB shows the intestinal gas pattern to be nonspecific. The organ silhouettes insofar as delineated are unremarkable. There is no evidence of free intraperitoneal air. There is no evidence of a radiopaque foreign body. IMPRESSION: Nonspecific. <Electronically signed by Cristhian Gallo > 09/30/20 [id number]
[2020-09-30 20:17] LABS: AMPHETAMINES LEVEL URINE NEGATIVE (NEGATIVE); BARBITURATES URINE NEGATIVE (NEGATIVE); BENZODIAZEPINES URINE POSITIVE (NEGATIVE); CANNABINOIDS URINE NEGATIVE (NEGATIVE); COCAINE METABOLITE URINE NEGATIVE (NEGATIVE); METHADONE URINE POSITIVE (NEGATIVE); OPIATES URINE POSITIVE (NEGATIVE); PHENCYCLIDINE URINE NEGATIVE (NEGATIVE)
[2020-09-30] MEDS ORDERED: CHARCOAL ACTIVATED LIQUID 25 GM/120 ML BTL PO ONE (20:45)
--- NOTE | 2020-09-30 21:03 | ECGEPIP ---
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
[2020-09-30] MEDS ORDERED: METH10CO PO (21:11)
[2020-09-30] MEDS ORDERED: PATIENT COMMENT (21:11)
[2020-09-30] MEDS ORDERED: ACETAMINOPHEN TAB 650MG DOSE (2X325MG) PO PRN (22:15)
[2020-09-30] MEDS ORDERED: MOM 30ML SUSPENSION UDC PO PRN (22:15)
--- NOTE | 2020-09-30 22:15 | HPEPDOC ---
[facility] Medical History & Physical Date of Admission Sep 30, 2020 Date of Service: Sep 30, 2020 History and Physical CHIEF COMPLAINT: Ingestion of bag of heroin HISTORY OF PRESENT ILLNESS: 30-year-old female with past medical history of opiate abuse brought in his custody. Patient tells me that she was stopped by police and got nervous and had a bag of hair when with her which she ingested. Says that she's been clean for about 1 year and goes to methadone program taking 110 mg of methadone daily last was yesterday. Tells me that about 4 weeks ago she relapsed and has been using heroin occasionally last use was this morning. Denies any palpitations or abdominal pain or diarrhea. Doesn't feel like she is withdrawing currently. In the ED poison control was contacted who recommended activated charcoal and admission for observation until patient has a bowel movement. PAST MEDICAL HISTORY: Opiate abuse History of hepatitis C treated 2018 PAST SURGICAL HISTORY: Umbilical hernia repair 2013 SOCIAL HISTORY: Denies alcohol use Denies tobacco use Denies illicit drug use FAMILY HISTORY: Patient does not know her parents or any other family and so does not know any family history ALLERGIES: Please see below. REVIEW OF SYSTEMS: Constitutional: No sweating or weight loss Eyes: No eye pain or acute blurred vision HENT: No complaints of headache or sore throat Cadiovascular: No Chest pain or palpitations Pulm: No SOB or cough Gastrointestinal: No N/V, no abdominal pain. Genitourinary: No dysuria or hematuria Musculoskeletal: No back pain or joint pain Skin: No rash or jaundice Neurological: No weakness. HOME MEDICATIONS: Please see below. PHYSICAL EXAMINATION: Constitutional: Awake and alert, in no apparent distress ENT: Sclera are clear. Mucosa is moist. Respiratory: Lungs CTA bilaterally. No respiratory distress. No use of accessory muscles. Cardiovascular: RRR S1 and S2 are normal, no murmur Gastrointestinal: Abdomen is soft, non distended, non tender, BS present. Musculoskeletal: No edema. No joint deformities. RUE 5/5, LUE 5/5, BLE 5/5 Neurologic: No focal neurological deficit. Mental Status: A&O x3, normal affect Skin: Warm, dry LABORATORY DATA: See below. IMAGING: Abdominal x-ray reviewed shows no evidence of radioopaque foreign body MICROBIOLOGY: Please see below. ASSESSMENT/PLAN 30-year-old female history of opiate abuse in a methadone program but relapsed 4 weeks ago brought in in police custody after swallowing a bag of heroin during arrest. Activated charcoal in ED per poison control recommendations. Patient will be admitted for observation. # Ingestion of bag of heroin: S/P activated charcoal. Observe until patient has bowel movement and charcoal is seen per poison control recommendations. # Opiate abuse: sw. Monitor for withdrawals. # Hypokalemia: Replaced. Monitor. # DVT prophylaxis: Lovenox A [facility] Hospitalist Vital Signs Vital Signs Date Time Temp Pulse Resp B/P (MAP) Pulse Ox O2 Delivery O2 Flow Rate FiO2 09/30/20 20:45 104 16 118/66 (83) 96 Room Air 09/30/20 18:32 98.0 Laboratory Data Labs 24H Laboratory Tests 2 09/30/20 17:34: Immature Granulocyte % (Auto) 0.4, Neutrophils (%) (Auto) 63.0, Lymphocytes (%) (Auto) 26.7, Monocytes (%) (Auto) 9.1H, Eosinophils (%) (Auto) 0.3, Basophils (%) (Auto) 0.5, Neutrophils # (Auto) 4.6, Lymphocytes # (Auto) 2.0, Monocytes # (Auto) 0.7, Eosinophils # (Auto) 0.0, Basophils # (Auto) 0.0, Nucleated Red Blood Cells % (auto) 0.0, Anion Gap 9, Glomerular Filtration Rate > 60.0, C alcium Level 9.3, Total Bilirubin 0.5, Direct Bilirubin 0.1, Aspartate Amino Transf (AST/SGOT) 23, Alanine Aminotransferase (ALT/SGPT) 16, Alkaline Phosphatase 153H, Total Creatine Kinase 187, Total Protein 8.0, Albumin 3.8, Albumin/Globulin Ratio 0.9L, Thyroid Stimulating Hormone (TSH) 0.700, Human Chorionic Gonadotropin, Qual NEGATIVE, Salicylates Level < 1.7L, Acetaminophen Level < 2.0L, Ethyl Alcohol Level 0.003 09/30/20 19:48: Urine Opiates Screen POSITIVEH, Urine Methadone Screen POSITIVEH, Urine Barbiturates Screen NEGATIVE, Urine Phencyclidine Screen NEGATIVE, Urine Amphetamines Screen NEGATIVE, Urine Benzodiazepines Screen POSITIVEH, Urine Cocaine Metabolite Screen NEGATIVE, Urine Cannabinoids Screen NEGATIVE CBC/BMP Laboratory Tests 09/30/20 17:34 Home Medications Scheduled Methadone HCl (Methadone HCl) 10 Mg/1 Ml Oral.conc, 110 MG PO DAILY Miscellaneous Medications [Patient Comment] NEED TO CONTACT [facility] TO CONFIRM DOSE Allergies Coded Allergies: Sulfa (Sulfonamide Antibiotics) (Verified Allergy, Intermediate, RASH, ) amoxicillin (Verified Allergy, Intermediate, RASH, 04/13/19) A-FIB/CHADSVASC A-FIB History Current/History of A-Fib/PAF?: No TRUDY SILVERIO MD Sep 30, 2020 22:15
[2020-10-01] VITALS (7 sets, daily range): BP systolic 96–136; BP diastolic 55–81; PULSE 50; O2SAT 96–98
[2020-10-01] MEDS: NS 1,000 ML IV SCH ×3 (03:13→17:28)
[2020-10-01] MEDS: CHARCOAL ACTIVATED LIQUID 25 GM/120 ML BTL PO SCH ×4 (03:28→15:51)
[2020-10-01 05:22] LABS: HEMATOCRIT 32.9 % (36.0-47.0); MEAN CORPUSCULAR HEMOGLOBIN 28.4 pg (27.0-33.0); MEAN CORPUSCULAR HGB CONC 31.6 g/dl (32.0-36.5); MEAN CORPUSCULAR VOLUME 89.9 fl (80.0-96.0); PLATELET COUNT, AUTOMATED 191 10^3/uL (150-450); RED BLOOD COUNT 3.66 10^6/uL (4.00-5.40); WHITE BLOOD COUNT 6.5 10^3/uL (4.0-10.0)
[2020-10-01 05:26] LABS: HEMOGLOBIN 10.4 g/dl (12.0-15.5)
[2020-10-01 05:52] LABS: BLOOD UREA NITROGEN 8 MG/DL (7-18); CALCIUM LEVEL 8.2 MG/DL (8.5-10.1); CARBON DIOXIDE LEVEL 25 MEQ/L (21-32); CHLORIDE LEVEL 111 MEQ/L (98-107); CREATININE FOR GFR 0.71 MG/DL (0.55-1.30); GLOMERULAR FILTRATION RATE > 60.0 (>60); GLUCOSE, FASTING 90 MG/DL (70-100); POTASSIUM SERUM 3.3 MEQ/L (3.5-5.1); SODIUM LEVEL 142 MEQ/L (136-145)
[2020-10-01] MEDS ORDERED: POTASSIUM CHLORIDE 10 MEQ SR TABLET PO ONE (07:30)
[2020-10-01 08:12] LABS: MAGNESIUM LEVEL 2.1 MG/DL (1.8-2.4)
[2020-10-01] MEDS ORDERED: NALOXONE INJ 0.4MG/1ML VIAL (J2310 PER 1MG) IV PRN (08:15)
[2020-10-01] MEDS: ENOXAPARIN 40MG/0.4ML SYRINGE (J1650 PER 10MG) SC SCH (08:24)
--- NOTE | 2020-10-01 15:09 | IPNPDOC ---
Subjective Date Seen The patient was seen on 10/01/20. Subjective Chief Complaint/HPI Ms. Montesinos is a 30 year old female with history of opioid abuse who was brought in custody for heroin possession and ingestion of a bag of heroin. This morning, she was seen sitting in bed with a cup of activated charcoal. Denies fever, dyspnea, or chest pain. She has some nausea and abdominal discomfort. No BM at this time. Objective Physical Examination General Exam: Positive: Alert, Cooperative Eye Exam: Positive: EOMI; Negative: Sclera icteric ENT Exam: Positive: Atraumatic Neck Exam: Positive: Supple Chest Exam: Positive: Clear to auscultation; Negative: Rales, Rhonchi, Wheezing Heart Exam: Positive: Rate Normal, Regular Rhythm Abdomen Exam: Positive: Normal bowel sounds, Soft Extremity Exam: Negative: Edema Neuro Exam: Positive: Cranial Nerves 3-12 NL Psych Exam: Positive: Anxiety Assessment /Plan Assessment Ms. Montesinos is a 30 year old female with history of opioid abuse who was brought in custody for heroin possession and ingestion of a bag of heroin. ED had contacted poison control which recommended activated charcoal and admission for observation until patient has a bowel movement. Pending BM Plan/VTE VTE Prophylaxis Ordered?: Yes Plan 1. Ingestion of bag of heroin -Activated charcoal. -Pending BM -PRN Narcan 2. Opiate abuse -Monitor for withdrawal -Start methadone when heroin bag has passed 3. Hypokalemia -Magnesium checked, 2.1 -Replete and monitor 4. DVT ppx -Lovenox Dispo: Pending BM of bag of heroin VS, I&O, 24H, Fishbone Vital Signs/I&O Vital Signs Date Time Temp Pulse Resp B/P (MAP) Pulse Ox O2 Delivery O2 Flow Rate FiO2 10/01/20 12:00 96.2 67 16 109/65 (80) 97 Room Air 10/01/20 08:00 2.0 I&O- Last 24 Hours up to 6 AM 10/01/20 05:59 Intake Total 1740 ml Output Total 0 ml Balance 1740 ml Laboratory Data 24H LABS Laboratory Tests 2 09/30/20 17:34: Immature Granulocyte % (Auto) 0.4, Neutrophils (%) (Auto) 63.0, Lymphocytes (%) (Auto) 26.7, Monocytes (%) (Auto) 9.1H, Eosinophils (%) (Auto) 0.3, Basophils (%) (Auto) 0.5, Neutrophils # (Auto) 4.6, Lymphocytes # (Auto) 2.0, Monocytes # (Auto) 0.7, Eosinophils # (Auto) 0.0, Basophils # (Auto) 0.0, Nucleated Red Blood Cells % (auto) 0.0, Anion Gap 9, Glomerular Filtration Rate > 60.0, Calcium Level 9.3, Total Bilirubin 0.5, Direct Bilirubin 0.1, Aspartate Amino Transf (AST/SGOT) 23, Alanine Aminotransferase (ALT/SGPT) 16, Alkaline Phosphatase 153H, Total Creatine Kinase 187, Total Protein 8.0, Albumin 3.8, Albumin/Globulin Ratio 0.9L, Thyroid Stimulating Hormone (TSH) 0.700, Human Chorionic Gonadotropin, Qual NEGATIVE, Salicylates Level < 1.7L, Acetaminophen Level < 2.0L, Ethyl Alcohol Level 0.003 09/30/20 19:48: Urine Opiates Screen POSITIVEH, Urine Methadone Screen POSITIVEH, Urine Barbiturates Screen NEGATIVE, Urine Phencyclidine Screen NEGATIVE, Urine Amphetamines Screen NEGATIVE, Urine Benzodiazepines Screen POSITIVEH, Urine Cocaine Metabolite Screen NEGATIVE, Urine Cannabinoids Screen NEGATIVE 10/01/20 05:06: Nucleated Red Blood Cells % (auto) 0.0, Anion Gap 6L, Glomerular Filtration Rate > 60.0, Calcium Level 8.2L, Magnesium Level 2.1 CBC/BMP Laboratory Tests 09/30/20 17:34 10/01/20 05:06 SABINA DOBBS DO Oct 01, 2020 15:09
[2020-10-02] VITALS: PULSE 50
[2020-10-02 00:23] LABS: VENOUS BASE EXCESS -1.9 (-2.0-2.0); VENOUS HCO3 21.9 MEQ/L (23.0-27.0); VENOUS O2 SATURATION 99.6 % (60.0-80.0); VENOUS PARTIAL PRESSURE CO2 34.2 mmHg (38.0-50.0); VENOUS PARTIAL PRESSURE O2 260.8 mmHg (30.0-50.0); VENOUS PH 7.424 UNITS (7.330-7.430); VENOUS STANDARD HCO3 22.9 MEQ/L; VENOUS TOTAL CO2 22.9 MEQ/L (24.0-28.0)
[2020-10-02] MEDS: NS 1,000 ML IV SCH ×2 (01:26→08:42)
[2020-10-02 04:00] VITALS: BP 126/81; PULSE 50
[2020-10-02 05:34] LABS: HEMATOCRIT 33.4 % (36.0-47.0); HEMOGLOBIN 10.7 g/dl (12.0-15.5); MEAN CORPUSCULAR HEMOGLOBIN 28.9 pg (27.0-33.0); MEAN CORPUSCULAR VOLUME 90.3 fl (80.0-96.0); PLATELET COUNT, AUTOMATED 179 10^3/uL (150-450); WHITE BLOOD COUNT 7.2 10^3/uL (4.0-10.0)
[2020-10-02 06:00] LABS: BLOOD UREA NITROGEN 3 MG/DL (7-18); CALCIUM LEVEL 8.1 MG/DL (8.5-10.1); CARBON DIOXIDE LEVEL 25 MEQ/L (21-32); CHLORIDE LEVEL 114 MEQ/L (98-107); CREATININE FOR GFR 0.58 MG/DL (0.55-1.30); GLOMERULAR FILTRATION RATE > 60.0 (>60); GLUCOSE, FASTING 85 MG/DL (70-100); POTASSIUM SERUM 3.5 MEQ/L (3.5-5.1); SODIUM LEVEL 145 MEQ/L (136-145)
[2020-10-02 08:00] VITALS: BP 122/80
[2020-10-02] MEDS: ENOXAPARIN 40MG/0.4ML SYRINGE (J1650 PER 10MG) SC SCH (08:43)
[2020-10-02] MEDS ORDERED: METHADONE 10 MG TAB (S0109) PO SCH (09:00)
--- NOTE | 2020-10-02 18:55 | DS.PDOC ---
Discharge Summary General Date of Admission Sep 30, 2020 at 17:10 Date of Discharge Oct 02, 2020 Attending Physician: SABINA DOBBS DO Discharge Summary PROCEDURES PERFORMED DURING STAY: None ADMITTING DIAGNOSES: 1. Ingestion of bag of heroin 2. Opiate abuse 3. Hypokalemia DISCHARGE DIAGNOSES: 1. Ingestion of bag of heroin 2. Opiate abuse 3. Hypokalemia COMPLICATIONS/CHIEF COMPLAINT: Foreign Body Ingestion, Heroin Abuse. HISTORY OF PRESENT ILLNESS: Ms. Montesinos is a 30-year-old female with history of opiate abuse brought in custody. She was stopped by the police and was nervous since she had heroin in a bag. She ingested the bag. Prior to this, she says that she was clean for about a year and goes to the methadone program. She takes 110mg of methadone daily. About 4 weeks prior to admission, she relapsed and was using heroin occasionally. Last use was in the morning. Denies any palpitations, abdominal pain, or diarrhea. She doesn't feel like she is withdrawing currently. In the ED poison control was contacted who recommended activated charcoal and admission for observation until patient has a bowel movement. HOSPITAL COURSE: The day after admission, she was seen working on a cup of activated charcoal. Later that evening, she had a large bowel movement with cont ents of activated charcoal. No bag was found. It is questionable if she had actually swallowed it. This morning, she felt that she was withdrawing with abdominal pain and palpitations. She was given methadone 100mg which helped resolved her symptoms. Otherwise, her vital signs were stable. Her hypokalemia had resolved. She was medically ready to return to police custody DISCHARGE MEDICATIONS: Please see below. ALLERGIES: Please see below. PHYSICAL EXAMINATION ON DISCHARGE: VITAL SIGNS: Please see below. GENERAL: Comfortable HEENT: Head normocephalic/atraumatic, EOMI, sclera clear. NECK: Supple RESPIRATORY: Lungs clear to auscultation bilaterally, no rales, wheeze or rhonchi. CARDIOVASCULAR: Regular rate and rhythm. ABDOMEN: Soft. Normal bowel sounds. MUSCLE SKELETAL: Muscle strength 5/5 in all extremities. NEUROLOGICAL: CN 312 grossly intact, no focal deficits noted. PSYCHOLOGICAL: Emotionally upset LABORATORY DATA: Please see below. IMAGING: X-ray abdomen Nonspecific. PROGNOSIS: Stable ACTIVITY: As tolerated DIET: As tolerated DISCHARGE PLAN: Return to police custody DISPOSITION: 70 Xfer Other. DISCHARGE INSTRUCTIONS: 1. Follow-up with physician at detention 2. Follow-up with your PCP within a week after being released from detention DISCHARGE CONDITION: Stable. Total time spent on discharge planning, discharge summary, medication reconciliation: 35 minutes Vital Signs/I&Os Vital Signs Date Time Temp Pulse Resp B/P (MAP) Pulse Ox O2 Delivery O2 Flow Rate FiO2 10/02/20 08:00 98.3 67 16 122/80 (94) 99 Nasal Cannula 1.0 I&O- Last 24 Hours up to 6 AM 10/02/20 06:00 Intake Total 360 ml Output Total 0 ml Balance 360 ml Laboratory Data Labs 24H Laboratory Tests 2 10/01/20 23:16: Blood Gas Bicarbonate Standard 22.9, Venous Blood pH 7.424, Venous Blood Partial Pressure CO2 34.2L, Venous Blood Partial Pressure O2 260.8H, Venous Blood Total Carbon Dioxide 22.9L, Venous Blood HCO3 21.9L, Venous Blood Oxygen Saturation 99.6H, Venous Blood Base Excess -1.9 10/02/20 01:28: Methicillin-Resist S.aureus DNA PCR NOT DETECTED 10/02/20 05:10: Nucleated Red Blood Cells % (auto) 0.0, Anion Gap 6L, Glomerular Filtration Rate > 60.0, Calcium Level 8.1L CBC/BMP Laboratory Tests 10/02/20 05:10 Allergies Coded Allergies: Sulfa (Sulfonamide Antibiotics) (Verified Allergy, Intermediate, RASH, 04/13/19) amoxicillin (Verified Allergy, Intermediate, RASH, 04/13/19) SABINA DOBBS DO Oct 02, 2020 18:55
== END 2020-10-02 12:13 | disposition other institution (70) ==
LOC: M ED 17:09 → M ED INP 17:10 → EEVIPCON 17:10 → ENRESERV 23:02 → M PCU 10-01 00:57
PROVIDERS: ADMIT Family Medicine; ATTEND Family Medicine
DX: T40.1X1A Poisoning by heroin, accidental (unintentional), initial encounter (principal); F11.10 Opioid abuse, uncomplicated; E87.6 Hypokalemia; Z79.891 Long term (current) use of opiate analgesic; Z88.0 Allergy status to penicillin; Z88.2 Allergy status to sulfonamides
CPT/HCPCS: 36415; 74018; 80048; 80076; 80307; 82550; 82803; 83735; 84443; 84703; 85025; 85027; 87641; 93005; 93041; 94760; 99285; G0480; J1650

== ENCOUNTER → 2020-12-09 | Outpatient (CLI) | payer OTHER ==
[~2020-12-09] MED LIST changes: -CLIN150C14 PO; +CLIN150C15 PO; +METH10CO PO; +PATIENT COMMENT
--- NOTE | 2020-12-11 07:51 | REP ---
INDICATION: R/O TUBERCULOUS COMPARISON: 04/13/2019 TECHNIQUE: PA and lateral. FINDINGS: The mediastinum and cardiac silhouette are normal. The lung donohue are clear and without acute consolidation, effusion, or pneumothorax. The skeletal structures are intact and normal. IMPRESSION: No acute cardiopulmonary process. <Electronically signed by Roel Manzanares > 12/11/20 [id number]
== END ==
LOC: M WUC 14:54
PROVIDERS: ATTEND Surgery
DX: Z11.7 Encounter for testing for latent tuberculosis infection (principal)